=== PATIENT | male | born 1950 | race Caucasian/White ===

== ENCOUNTER 2025-03-16 19:37 | Emergency (ER) | payer MEDICARE, OTHER, SELFPAY ==
[2025-03-16 19:45] VITALS: BP 178/82
[2025-03-16 20:08] LABS: Hematocrit 42.5 % (39.0-52.0); Hemoglobin 14.7 g/dL (13.0-18.0); Mean Corp Hgb Conc. 34.6 g/dL (33.0-37.0); Mean Corpuscular Volume 89.3 fL (80.0-94.0); Nucleated Red Blood Cells % 0 % (-); Platelet Count 137 10^3/uL (130-400); Red Cell Dist. Width 12.7 % (11.5-14.5)
[2025-03-16 20:20] LABS: ALT (SGPT) 21 U/L (0-50); AST (SGOT) 27 U/L (17-59); Albumin 4.7 g/dl (3.5-5.0); Alkaline Phosphatase 57 U/L (38-126); Blood Urea Nitrogen 15 mg/dl (9-20); Calcium 9.7 mg/dl (8.4-10.2); Carbon Dioxide 31 mmol/L (22-30); Chloride 97 mmol/L (98-107); Glucose 131 mg/dl (70-99); Lipase 86 U/L (23-300); Potassium 3.3 mmol/L (3.5-5.1); Sodium 135 mmol/L (135-145); Total Protein 7.4 g/dl (6.3-8.2); eGFR > 60.00
[2025-03-16 23:26] VITALS: BP 147/75
[2025-03-16 23:36] VITALS: BMI 24.8
[2025-03-17] VITALS: BP 142/75
--- NOTE | 2025-03-17 00:55 | ED.GENMED ---
History of Present Illness
General
Chief Complaint: Abdominal Pain
Source: patient
Exam Limitations: none
Time Seen by Provider: 03/17/25 00:28
Nursing documentation reviewed up to this point in time: agreed with
History of Present Illness
History of Present Illness:
75-year-old male with past medical history of hypertension, presents to the ER today with concerns of abdominal pain and vomiting. Currently, he is pain-free. He reports that the past few days he has had mid abdominal pain intermittently, worse
with eating, and associated with vomiting. Pain does not radiate to the back. No pelvic or groin pain. No burning with urination or blood in the urine. He had similar episodes a few weeks ago that resolved on its own and he did not seek
treatment at the time. He has no associated fever. He had normal bowel movements. No history of intra-abdominal surgeries. He had a colonoscopy 4 years ago and had a polyp removed. He had this done in [place] and does not follow with GI
currently, he has another colonoscopy due in a year.
Past History
Past History
ED Past Medical History: HTN and Other (BPH, PNA)
ED Past Surgical History: None
Social History
Tobacco: Non-smoker
Alcohol: Daily (Beer 1)
Personal:
Living: with family
Review of Systems
Review of Systems
All Other Systems: ROS reviewed and negative except as documented in HPI and ROS
Phy Exam
Physical Exam
Physical Exam:
GEN: Well appearing, NAD, WDWN
Eyes: PERRLA, EOMs intact, no scleral icterus
HENT: NCAT, oral mucosa moist
Lungs: CTAB, no wheezes, rales, rhonchi
Cardiac: RRR, no M/R/G, no peripheral edema. Radial pulses 2+ bilat
Abdomen: S, NT, ND, NABS, no masses or hepatosplenomegaly
Neuro: AO x 3, no focal deficits
MSK: No gross deformity or ecchymosis.
Skin: No rashes, petechiae. Normal color, no pallor or jaundice.
Psych: Calm, cooperative, proper hygiene
Course
Orders/Labs/Results
Orders:
Orders
03/16/25 19:54
Complete Blood Count/With Diff Urgent
Comprehensive Metabolic Panel Urgent
Lipase Urgent
03/17/25 00:55
CT Abd/pelvis W Iv Cont Urgent
Comment:
Reason For Exam: periumbilical abdominal pain
03/17/25 01:09
Urinalysis Reflex To Culture Urgent
Date Specimen was Collected: 03/17/25
Time Specimen was Collected: 01:01
03/17/25 03:49
Potassium Chloride 10% Elixir [KCl Elixir] 40 meq PO NOW STA
Abnormal Lab Results
03/16/25 03/17/25
19:54 01:09
WBC 11.4 H 10^3/uL
(4.8-10.8)
MPV 10.8 H fL
(7.4-10.4)
Abs Immat Gran (auto) 0.1 H 10^3/uL
(0-0.05)
Absolute Neuts (auto) 9.5 H 10^3/uL
(1.4-6.5)
Neutrophils % 83.7 H %
(42.2-75.2)
Lymphocytes % 10.5 L %
(20.5-51.1)
Potassium 3.3 L mmol/L
(3.5-5.1)
Chloride 97 L mmol/L
(98-107)
Carbon Dioxide 31 H mmol/L
(22-30)
Glucose 131 H mg/dl
(70-99)
Total Bilirubin 2.0 H mg/dl
(0.2-1.3)
Urine Ketones 2+ A
(Negative)
03/16/25 19:54
03/16/25 19:54
Vital Signs
Initial and Last Documented VS:
Initial Vital Signs
Temp Pulse Resp BP Pulse Ox
97.5 F 72 16 178/82 98
03/16/25 19:45 03/16/25 19:45 03/16/25 19:45 03/16/25 19:45 03/16/25 19:45
Last Documented Vital Signs
Temp Pulse Resp BP Pulse Ox
97.5 F 66 14 131/78 98
03/16/25 19:45 03/17/25 02:30 03/17/25 02:30 03/17/25 02:00 03/17/25 05:30
MDM/Problems Addressed
Differential Diagnosis Includes:
Differentials include appendicitis, colitis, gastroenteritis, renal stone
MDM/Problems Addressed:
75-year-old male presents to the ER today with concerns of intermittent episodes of abdominal pain and vomiting. Currently, he is pain-free. He has not had a fever. He is feeling well at this time. On physical exam, he is well-appearing in no
acute distress. He is afebrile. He has no abdominal tenderness on exam.
Labs reviewed, he does have a mild leukocytosis noted. He also has hypokalemia likely secondary to GI loss. I did attempt to replete the potassium but patient reports that he previously had potassium supplementation and it upset his stomach and he
is very concerned about taking it again in light of his current symptoms. I advised the patient usually do better with the potassium drink however patient states that he is declining rather close primary care provider regarding potassium. I
expressed that it is important to get his blood work repeated and follow the symptoms closely.
Urinalysis reviewed, no signs of infection. CAT scan reveals signs concerning for potential colon cancer with peritoneal spread of disease. There is eccentric thickening enhancement of the cecum at junction with ascending colon with small
scattered omental nodules and multiple mesenteric nodules. There is also a small amount of ascites. Reviewed findings with ED attending. As there is no bowel obstruction and no acute findings, no indication for admission to the hospital at this
time. Will require close outpatient follow-up and urgent colonoscopy. I sent his information to the GI front desk attendant so that he can have a urgent appointment coming up I also notified his primary care provider of the findings today. Discussed strict
return precautions.
*Pulse Oximetry
SaO2: 95
Oxygen Mode of Delivery: Room air
Patient hypoxic: no
*Critical Care Note
Total Time (30-74mins, 75-104mins- exclusive of procedures): Not Applicable
ED Attending Note
-
Portions of this chart may have been created with voice recognition software.� Occasional wrong word or��sound alike� substitutions may have occurred due to the inherent limitations of voice recognition software.
Discharge Plan
Departure
Patient Disposition: Home (Routine Discharge)
Date of Disposition: 03/17/25
Time of Disposition: 04:51
Patient with high blood pressure during this ER visit?: Yes
Condition: Good
Discharge Problem:
Abdominal pain, Vomiting
Instructions: Nausea and Vomiting, Adult (DC), Abdominal Pain, BLOOD PRESSURE
Prescriptions:
New
dicyclomine 20 mg tablet
20 mg PO BID Qty: 8 0RF
ondansetron 4 mg tablet,disintegrating
4 mg PO Q4H PRN (Reason: nausea and vomiting) Qty: 8 0RF
No Action
ascorbic acid (vitamin C) [Vitamin C] 500 MG tablet
500 mg PO DAILY
tamsulosin 0.4 MG capsule
0.4 mg PO BID
Multivitamin
1 tab PO DAILY
atorvastatin 20 mg Tablet
20 mg PO DAILY
valsartan 80 mg Tablet
80 mg PO DAILY
triamterene-hydrochlorothiazid 37.5-25 mg Capsule
1 cap PO DAILY
finasteride 5 mg Tablet
5 mg PO DAILY
Referrals:
Kody Calvo DO [Family Provider, Family Practice]
Bean Gandara, DO [Active, Gastroenterology] - Call in 1-3 days for appt
Activity Restrictions/Additional Instructions:
As discussed, I have sent Arnie and Eugenie to your pharmacy.
I have sent your information to the GI front desk attendant. You should receive a call this week to schedule follow up.
PLEASE RETURN TO THE ER SHOULD YOU DEVELOP CHEST PAIN, SHORTNESS OF BREATH, RECTAL BLEEDING, INTRACTABLE NAUSEA OR VOMITING, FEVERS OR CHILLS, INTRACTABLE ABDOMINAL PAIN, OR ANY OTHER SIGNS OR SYMPTOMS WORRISOME TO YOU.
Interventions
Interventions:
*General Assessment Last Done: 03/16/25 23:34
*Neglect/Abuse Screening Last Done: 03/16/25 19:47
*ED COVID-19 Vaccine History Last Done: 03/16/25 23:34
*ED Influenza Vaccine History Last Done: 03/16/25 23:34
[facility] Risk Assessment Tool Last Done: 03/16/25 23:34
*Risk Screen - Suicide (C-SSRS) Last Done: 03/16/25 19:47
*Nursing Disposition Last Done: 03/17/25 05:30
BA-Fwpzfk-Kdzemipyvg Assessment Last Done: 03/17/25 04:08
Discharge Date and Time
Discharge Date/Time: 03/17/25 05:30
Print Language: GERMAN
[2025-03-17 01:08] VITALS: BP 144/75
[2025-03-17 01:18] LABS: Urine Character Slightly Cloudy (Clear)
[2025-03-17 02:00] VITALS: BP 131/78
[2025-03-17] MEDS: KCL ELIXIR 40 MEQ PO (04:14)
== END 2025-03-17 05:30 | disposition home or self-care (01) ==
LOC: EMR 19:37
PROVIDERS: Emergency Medicine; Physician Assistant; EMERGENCY PHYSICIAN Emergency Medicine; FAMILY PHYSICIAN Family Medicine
DX: R10.33 Periumbilical pain (principal); R11.10 Vomiting, unspecified; E87.6 Hypokalemia; I10 Essential (primary) hypertension; R18.8 Other ascites; Z86.0100 Personal history of colon polyps, unspecified
CPT/HCPCS: 99284; 74177; 80053; 81003; 83690; 85025; Q9967

== ENCOUNTER 2025-03-26 06:23 | Day surgery (SDC) | payer MEDICARE, OTHER, SELFPAY | END 2025-03-26 14:26 | disposition home or self-care (01) | LOC: GI 06:23 | PROVIDERS: ATTENDING PHYSICIAN Internal Medicine Gastroenterology | DX: R19.4 Change in bowel habit (principal); R93.3 Abnormal findings on diagnostic imaging of other parts of digestive tract; K57.30 Diverticulosis of large intestine without perforation or abscess without bleeding; N49.0 Inflammatory disorders of seminal vesicle; K56.690 Other partial intestinal obstruction; D12.3 Benign neoplasm of transverse colon; K63.89 Other specified diseases of intestine; D49.0 Neoplasm of unspecified behavior of digestive system | CPT/HCPCS: 45380; 45381; 88305; 88341; 88342 ==